=== PATIENT | female | born 1975 | race Caucasian/White ===

== ENCOUNTER → 2017-01-24 | Outpatient (CLI) | payer BC ==
--- NOTE | 2017-01-24 10:36 | MM ---
Reason for exam: screening (asymptomatic). Baseline mammogram. History: Took hormonal contraceptives for 2 years. Took estrogen for 8 years. Physical Findings: Nurse did not find any significant physical abnormalities on exam. MG Screening Mammo w CAD Bilateral CC and MLO view(s) were taken. The breast tissue is heterogeneously dense. This may lower the sensitivity of mammography. These results were verbally communicated with the patient and result sheet given to the patient on 01/24/17. ASSESSMENT: Benign, BI-RAD 2 RECOMMENDATION: Routine screening mammogram of both breasts in 1 year.
== END | disposition home or self-care (01) ==
LOC: RADMAMWWP 09:36
PROVIDERS: ATTEND Obstetrics & Gynecology
DX: Z12.31 Encounter for screening mammogram for malignant neoplasm of breast (principal)

== ENCOUNTER → 2018-03-18 | Outpatient (CLI) | payer BC ==
[2018-03-18 08:01] LABS: ALT 29 U/L (9-52); AST 18 U/L (14-36); Cholesterol 162 mg/dL (<200); HDL Cholesterol 47 mg/dL (40-60); LDL Cholesterol,Calculated 93 mg/dL (0-99); Triglycerides 110 mg/dL (<150)
== END | disposition home or self-care (01) ==
LOC: LABWHC1 07:08
PROVIDERS: ATTEND Internal Medicine Clinical Cardiac Electrophysiology
DX: E78.2 Mixed hyperlipidemia (principal)
CPT/HCPCS: 36415; 80061; 84450; 84460

== ENCOUNTER → 2018-07-28 | Outpatient (CLI) | payer BC ==
[2018-07-28 08:56] LABS: Basophils # (A) 0.1 k/uL (0-0.2); Basophils % (A) 1 %; Eosinophils # (A) 0.1 k/uL (0-0.7); Eosinophils % (A) 1 %; HCT 38.9 % (34.0-46.0); HGB 12.8 gm/dL (11.4-16.0); Lymphocytes # (A) 1.9 k/uL (1.0-4.8); Lymphocytes % (A) 28 %; MCHC 32.9 g/dL (31.0-37.0); MCV 85.3 fL (80.0-100.0); Mean Platelet Volume 6.3; Monocytes # (A) 0.3 k/uL (0-1.0); Monocytes % (A) 4 %; Neutrophils # (A) 4.5 k/uL (1.3-7.7); Neutrophils % (A) 65 %; Platelet Count 233 k/uL (150-450); RBC 4.57 m/uL (3.80-5.40); WBC 6.9 k/uL (3.8-10.6)
== END | disposition home or self-care (01) ==
LOC: LABPAT 07:52
PROVIDERS: ATTEND Obstetrics & Gynecology
DX: Z01.812 Encounter for preprocedural laboratory examination (principal)
CPT/HCPCS: 36415; 85025

== ENCOUNTER 2018-08-01 05:48 | Day surgery (SDC) | payer BC ==
[2018-07-25 10:08] VITALS: BMI 38.0
--- NOTE | 2018-07-31 07:54 | P.HPOB ---
History of Present Illness H&P Date: 07/31/18 Chief Complaint: Menorrhagia This patient is a pleasant 42 yr female with longstanding menorrhagia and DUB. Evaluation has including a pelvic ultrasound (normal) and endometrial biopsy (normal). She has tried OCPs without relief and at this point is requesting an endometrial ablation for treatment. Review of Systems Genitourinary: Reports abnormal vaginal bleeding, Reports menorrhagia Menstruation: Reports cycle variable, Reports period heavy Past Medical History Additional Past Medical History / Comment(s): arrthmia and papatations History of Any Multi-Drug Resistant Organisms: None Reported Past Surgical History: Cholecystectomy Past Anesthesia/Blood Transfusion Reactions: No Reported Reaction Past Psychological History: No Psychological Hx Reported Smoking Status: Never smoker Past Alcohol Use History: None Reported Past Drug Use History: None Reported - Past Family History Father Family Medical History: Cancer Additional Family Medical History / Comment(s): lung Medications and Allergies Home Medications Medication Instructions Recorded Confirmed Type Fluticasone Nasal [place] [Flonase 1 spray EA NOSTRIL DAILY 07/25/18 07/25/18 History Nasal [place]] Loratadine [Alavert] 10 mg PO QAM 07/25/18 07/25/18 History Nadolol [Corgard] 10 mg PO QAM 07/25/18 07/25/18 History Allergies Allergy/AdvReac Type Severity Reaction Status Date / Time adhesive tape AdvReac Rash/Hives Verified 07/25/18 10:18 latex AdvReac Rash/Hives Verified 07/25/18 10:16 immitation crab Allergy Unknown Uncoded 07/25/18 10:17 Exam - OBG Physical Exam Abdomen: bowel sounds normal, no diffuse tenderness, no bruit present, no guarding noted, no hepatomegaly, no splenomegaly, no mass Vulva: both: normal Vagina: normal moisture, no discharge Cervix: no lesion, no discharge Uterus: normal size, normal contour Results Transvaginal ultrasound 11/2017 was normal. Endometrial biopsy was normal. Assessment and Plan Assessment: This is a pleasant 42 yr female with longstanding dysfunctional uterine bleeding and menorrhagia. She desires an endometrial ablation for treatment. Plan is hysteroscopy, D&C, and Novasure endometrial ablation. We have discussed this surgery and risks: infection, bleeding, possible uterine perforation and/or thermal injury. All of the patients questions have been answered and a written consent obtained. (1) Dysfunctional uterine bleeding Status: Chronic Code(s): N93.8 - OTHER SPECIFIED ABNORMAL UTERINE AND VAGINAL BLEEDING SNOMED Code(s): 36032871
[~2018-08-01 05:48] MED LIST: DEXAMETHASONE SOD PHOSPHATE 10 MG/ML 1 ML VIAL IV ONE; HYDROmorphone 0.5 MG/0.5 ML SYRINGE IVP PRN; LACTATED RINGERS 1,000 ML IV SCH; LIDOCAINE 1% 20 ML VIAL (10MG/ML) FOR IV START INTRADERMA PRN; ONDANSETRON 4 MG/2 ML VIAL IVP ONE; Pre Op ABX Message 1 EACH MISC MISCELLANE ONE; SCOPOLAMINE 1.5MG/72HR PATCH TRANSDERM ONE
[2018-08-01] MEDS ORDERED: MIDAZOLAM 2 MG/2 ML VIAL ONE (06:57)
[2018-08-01] MEDS ORDERED: PROPOFOL 10 MG/ML 20 ML VIAL IV ONE (06:57)
[2018-08-01] MEDS ORDERED: KETOROLAC 30 MG/ML 1 ML VIAL ONE (06:57)
[2018-08-01] MEDS ORDERED: LIDOCAINE 1% INJ 10MG/ML (20 ML MDV) ONE (06:57)
[2018-08-01] MEDS ORDERED: fentaNYL (PF) 50 MCG/ML 2 ML AMP ONE (06:57)
--- NOTE | 2018-08-01 07:33 | P.OP ---
Date of Procedure: 08/01/18 Preoperative Diagnosis: Menorrhagia/dysfunctional uterine bleeding Postoperative Diagnosis: Same Procedure(s) Performed: #1: Hysteroscopy. #2: Dilation and curettage. #3: NovaSure endometrial ablation Anesthesia: MAC Surgeon: Fahad Lewis Estimated Blood Loss (ml): 10 Urine output (ml): 25 Pathology: other Condition: stable (N Josee curettings) Disposition: PACU Indications for Procedure: Please see dictated H&P for intimate details of this patient's admission. Brief summary is a pleasant 42-year-old 3 para 3 female whose had long- standing dysfunctional bleeding and menorrhagia despite oral contraceptives is now presenting for trial of endometrial ablation. Patient and I discussed the surgery and risks including risks of infection, bleeding, possible uterine perforation and/or thermal injury. All the patient's questions are answered and a written consent is obtained. Operative Findings: This patient had a enlarged uterus however normal appearing endometrial cavity without evidence of polyps or fibroids. Description of Procedure: This patient is taken to the operating room where she is laid in the supine position. She subsequently undergoes general mask anesthesia without incident. With an adequate level of anesthesia, she's placed in the dorsal lithotomy position. She has a vaginal perineal prep and drape. Examination under anesthesia shows a mid position uterus. I placed a weighted speculum the posterior vagina. The bladder is drained for 25 mL of clear urine. I then grabbed the anterior lip of the cervix with an Allis clamp. Uterus is then sounded to 10 cm. Gentle dilation is then done of the endocervix to allow the hysteroscope easily and the uterine cavity. Using saline solution hysteroscopy is performed and the endometrial cavity is measured be a length of 6.0 cm. There is no evidence of any polyps or fibroids. With this done the hysteroscope was removed. Cervix is dilated gently more to allow a small curette easily and the uterine cavity. A gentle 4 quadrant curettage is done for adequate sampling. With this done the NovaSure device is then opened appears to be intact. Set at a length of 6.0 cm and opens up to a width of 3.7 cm. It then passes the cavity integrity test after being seated in place and is then enabled at 122 W setting for 40 seconds. With this done the NovaSure device is removed and appears to be intact. Hysteroscopy is then performed and the uterine cavity appears to be ablated up to the endocervix. At this point the procedure is then terminated the Allis clamp and weighted speculum removed. All counts are correct 3. There are no complications. Patient is taken to the recovery room in satisfactory condition.
[2018-08-01 07:43] VITALS: RESP 16; TEMP 97.9
[2018-08-01] MEDS ORDERED: LACTATED RINGERS 1,000 ML IV ONE (08:16)
[2018-08-01 08:42] VITALS: BP 125/65; PULSE 68
== END 2018-08-01 09:30 | disposition home or self-care (01) ==
LOC: OR 05:48
PROVIDERS: ATTEND Obstetrics & Gynecology
DX: N92.0 Excessive and frequent menstruation with regular cycle (principal); N93.8 Other specified abnormal uterine and vaginal bleeding; N85.2 Hypertrophy of uterus; R00.2 Palpitations; K21.9 Gastro-esophageal reflux disease without esophagitis; Z79.899 Other long term (current) drug therapy; Z91.013 Allergy to seafood; Z91.040 Latex allergy status; Z91.048 Other nonmedicinal substance allergy status; Z90.49 Acquired absence of other specified parts of digestive tract
CPT/HCPCS: 81025; 88305; 58563; J2250; J1100; J2405; J2001; J3010; J1885; J2704

== ENCOUNTER → 2019-03-03 | Outpatient (CLI) | payer BC ==
[2019-03-03 16:02] LABS: Albumin 4.2 g/dL (3.80-4.90); Albumin/Globulin Ratio 2.1 (1.60-3.17); Anion Gap 7.3 mmol/L (4.00-12.00); Calcium 9.3 mg/dL (8.7-10.3); Carbon Dioxide 27.7 mmol/L (21.6-31.8); LDL Cholesterol,Calculated 85.4 mg/dL (0.0-131.0); Potassium 4.6 mmol/L (3.5-5.5); Total Bilirubin 0.4 mg/dL (0.2-1.2); Total Protein 6.2 g/dL (6.2-8.2); VLDL Calculation 42.6 mg/dL (5.00-40.00)
== END ==
LOC: LABT 08:03
PROVIDERS: ATTEND Internal Medicine Clinical Cardiac Electrophysiology
DX: I42.9 Cardiomyopathy, unspecified (principal); E78.5 Hyperlipidemia, unspecified; R00.2 Palpitations
CPT/HCPCS: 36415; 80053; 80061; 84443

== ENCOUNTER → 2019-11-02 | Outpatient (CLI) | payer BC ==
--- NOTE | 2019-11-03 08:35 | US ---
EXAMINATION TYPE: US thyroid st tissue head/neck DATE OF EXAM: 11/02/2019 COMPARISON: NONE CLINICAL HISTORY: E04.1 Nontoxic single thyroid nodule. Constant drainage/cold GLAND SIZE: Right Lobe: 4.7 x 1.4 x 1.4 cm Overall Parenchyma: homogenous Left Lobe: 3.6 x 1.1 x 1.3 cm Overall Parenchyma: homogeneous Isthmus Thickness: 0.2 cm NODULES RIGHT: # of nodules measured on right: 0 LEFT: # of nodules measured on left: 0 ISTHMUS: # of nodules measured in the isthmus: 0 Bilateral neck scanned, no evidence of lymphadenopathy. Bilateral homogeneous thyroid glands. IMPRESSION: Mildly enlarged thyroid gland. Homogeneous thyroid gland with no discrete nodules.
== END | disposition home or self-care (01) ==
LOC: RADUSWWP 16:19
PROVIDERS: ATTEND Family Medicine
DX: E04.9 Nontoxic goiter, unspecified (principal); E07.89 Other specified disorders of thyroid
CPT/HCPCS: 76536